=== PATIENT | female | born 2000 | race Caucasian/White ===

== ENCOUNTER 2024-08-12 19:10 | Emergency (ER) | payer OTHER, SELFPAY ==
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
--- OUTSIDE RECORDS SUMMARY | 2024-08-12 19:12 | XMS_ITS | Clinical Summary ---
Author Organization [facility] Care Team Providers Care Cafeteria Food Server Name Role Phone Unavailable Primary Care Provider Unavailabl e Social History Tobacco Use Types Packs/Day Years Used Date Smoking Tobacco: Never Assessed Comments Unknown Sex and Gender Information Value Date Recorded Sex Assigned at Not on file Legal Sex Female 11:43 AM CDT Gender Identity Not on file Sexual Orientation Not on file Plan of Treatment Health Maintenance Due Date Last Done Comments Hepatitis C Virus (HCV) Screening 2000 Human Papillomavirus (HPV) Immunization (2 - 2-dose series) 04/03/2013 10/01/2012 Meningococcal B Immunization (1 of 2 - Standard) 2016 Hepatitis B Immunization (1 of 3 - 19+ 3-dose series) 11/08/2019 Pap Smear 2021 Influenza Immunization (#1) 2023 01/04/2011 SARS-COV-2 Immunization ( - 2023- season) 2023 Respiratory Syncytial Virus (RSV) Immunization (Adult) (1 - 1-dose 75+ series) 11/08/2075 DTaP/Tdap/Td Immunization Discontinued 2015, 10/01/2012 TdaP Immunization Completed 10/25/2015, 10/01/2012 Meningococcal Immunization (ACWY) Completed 10/21/2018, 10/25/2015, 01/04/2011 Pneumococcal Immunization Combined Aged Out No longer eligible based on patient's age to complete this topic Rotavirus Immunization Aged Out No lo nger eligible based on patient's age to complete this topic
[2024-08-12 19:28] VITALS: BP 150/88; PULSE 71; RESP 18; TEMP 36.9; O2SAT 100
--- OUTSIDE RECORDS SUMMARY | 2024-08-12 20:32 | XMS_ITS | Clinical Summary ---
Author Organization [facility] Care Team Providers Care Coal Hiker Name Role Phone Unavailable Primary Care Provider [...]
--- OUTSIDE RECORDS SUMMARY | 2024-08-12 20:32 | XMS_ITS | Clinical Summary ---
Author Organization [facility] Address [address] [place] [address] Care Team Providers Care Dyno Technician Name Role Phone Ji Sood MD Primary Care Provider [phone] Source Comments [facility],non-owned Affiliates and Associated Physician Practices is amultiple site organization consisting of ambulatory clinics and hospital sitesin [place], [place], [place] and [place]. This disclosure is being madepursuant to the Care Everywhere program and may not contain all information available regarding this patient. Last updated 17.[facility] [employer] Allergies No known active allergies Medications * [...] on file Legal Sex Female 4:37 AM GAS PLANT OPERATOR Gender Identity Not on file Sexual Orientation Not on file Last Filed Vital Signs Vital Sign Reading Time Taken Comments Blood Pressure 109/51 04/25/2011 8:06 AM GAS PLANT OPERATOR Pulse 68 04/25/2011 8:06 AM GAS PLANT OPERATOR Temperature 36.9 C (98.4 F) 04/25/2011 9:50 AM GAS PLANT OPERATOR Respiratory Rate 18 04/25/2011 8:06 AM GAS PLANT OPERATOR Oxygen Saturation 99% 04/25/2011 4:10 AM GAS PLANT OPERATOR Inhaled Oxygen Concentration - - Weight 40.5 kg (89 lb 4.6 oz) 04/24/2011 8:13 AM GAS PLANT OPERATOR Height 143.6 cm (4' 8.54 ) 04/24/2011 8:13 AM CS T Body Mass Index 19.64 04/24/2011 8:13 AM GAS PLANT OPERATOR Plan of Treatment Health Maintenance Due Date [...] age to complete this topic Care Teams Dyno Technician Relationship Specialty Start Date End Date Ji Sood MD [address] [place] [id number] PCP - General 03/06/11
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
[2024-08-12] MEDS: ONDANSETRON INJ 4 MG/2 ML VIAL IV PUSH (21:33)
[2024-08-12] MEDS: MORPHINE SULFATE (*CRX) 4 MG/ML INJ IV PUSH (21:34)
[2024-08-12 21:38] LABS: Basophils Absolute Auto 0.1 K/mm3 (0.0-0.1); Basophils Percent Auto 0.8 % (0.2-1.2); Eosinophils Absolute Auto 0.2 K/mm3 (0-0.3); Eosinophils Percent Auto 2.8 % (0-4.4); Hematocrit 39.9 % (37.0-47.0); Hemoglobin 12.9 g/dL (12.0-15.0); Immature Granulocyte Absolute 0.03 K/mm3 (0.00-0.031); Immature Granulocyte Percent A 0.3 % (0-0.5); Lymphocytes Absolute Auto 2.46 K/mm3 (0.9-3.2); Lymphocytes Percent Auto 28.6 % (18.3-44.2); Mean Corpuscular HGB Conc 32.3 g/dl (32-36); Mean Corpuscular Hemoglobin 28.9 pg (26-34); Mean Corpuscular Volume 89.3 fl (80-100); Mean Platelet Volume 10.2 fl (7.4-10.4); Monocytes Absolute Auto 0.6 K/mm3 (0.1-0.6); Neutrophils Absolute Auto 5.2 K/mm3 (1.3-6.7); Neutrophils Percent Auto 60.5 % (45.5-73.1); Platelet Count Result 255 k/mm3 (150-375); Red Blood Count 4.47 M/mm3 (4.2-5.4); Red Cell Distribution Width 12.6 % (11.5-14.5); White Blood Count 8.6 K/mm3 (4.5-10.0)
[2024-08-12 21:46] LABS: Alanine Aminotransferase 18 U/L (6-35); Albumin Level 4.5 g/dL (3.5-5.1); Alkaline Phosphatase 69 U/L (38-126); Anion Gap 6 mmol/L (4-12); Aspartate Amino Transferase 37 U/L (14-36); Bilirubin,Total 0.4 mg/dL (0.2-1.3); Blood Urea Nitrogen 4 mg/dL (7-17); Calcium 9.2 mg/dL (8.4-10.2); Carbon Dioxide 22 mmol/L (22-30); Chloride 110 mmol/L (98-107); Estimated CRCL calculation 113 ml/min; Estimated Glomerular Filt Rate > 60; Glucose 92 mg/dL (65-110); Potassium 3.9 mmol/L (3.4-5.0); Sodium 138 mmol/L (137-145)
[2024-08-12 21:47] LABS: BEDSIDEPREGUCG Negative (Negative)
[2024-08-12 21:48] LABS: Add Urine Microscopic? YES; Appearance Urine Clear (Clear); Bacteria Urine Rare /hpf; Bilirubin Urine Negative (Negative); Blood Urine Negative (Negative); Color Urine Yellow (Yellow); Glucose Urine UA Negative (Negative); Ketones Urine Negative (Negative); Leukocyte Esterase Ur 3+ LEU/UL (Negative); Nitrate Urine Negative (Negative); Non Pathogenic Casts 0-2; Protein Urine Negative (Negative); RBC Urine 0-2 /hpf (0-2); Specific Grav Ur 1.007 (1.001-1.035); Squamous Epithelial Cell Urine Few /hpf (Few); Urobilinogen Urine 0.2 mg/dL (<2.0); pH Urine 6.5 (5.0-9.0)
[2024-08-12] MEDS: SODIUM CHLORIDE 0.9% IV 1,000 ML 999 ML IV CONT (22:20)
[2024-08-12 22:46] VITALS: BP 143/82; PULSE 61; RESP 19; O2SAT 99
[2024-08-12] MEDS: KETOROLAC 15 MG/ML VIAL (*BKC) IV PUSH (22:51)
[2024-08-13] MEDS: HYDROcodone/acetaminophen (*CRX) 10-325 MG TABLET 1 TAB PO (00:41)
[2024-08-13] MEDS: NITROFURANTOIN MONOHYD MACROCR 100 MG CAP PO (00:41)
[2024-08-13 00:46] VITALS: PULSE 67; RESP 14; O2SAT 100
== END 2024-08-13 00:45 | disposition home or self-care (01) ==
PROVIDERS: Emergency Provider Registered Nurse
DX: S06.0XAA Concussion with loss of consciousness status unknown, initial encounter (principal); S13.4XXA Sprain of ligaments of cervical spine, initial encounter; S29.012A Strain of muscle and tendon of back wall of thorax, initial encounter; S39.012A Strain of muscle, fascia and tendon of lower back, initial encounter; S16.1XXA Strain of muscle, fascia and tendon at neck level, initial encounter; S60.222A Contusion of left hand, initial encounter; V49.40XA Driver injured in collision with unspecified motor vehicles in traffic accident, initial encounter
CPT/HCPCS: 36415; 70450; 70486; 71260; 72125; 72129; 72132; 73030; 73090; 73100; 73120; 74177; 80053; 81001; 81025; 85025; 87086; 96361; 96374; 96375; 99284; A9270; J1885; J2270; J2405; J7030; Q9967